=== PATIENT | female | born 1990 | race African-American/Black ===

== ENCOUNTER 2024-12-29 13:54 | Emergency (ER) | payer MEDICAID ==
[~2024-12-29] VITALS: Ht 157.5 cm; Wt 55.0 kg
[2024-12-29 14:05] VITALS: O2SAT 99
[2024-12-29 15:12] LABS: BASOPHILS % 0.6 % (0.0-2.0); DIFFERENTIAL COMMENT 0; EOSINOPHILS % 0.1 % (0.0-5.0); HEMATOCRIT. 39.6 % (36.0-48.0); HEMOGLOBIN. 13.2 g/dL (12.0-16.0); LYMPHOCYTES % 21.2 % (20.0-50.0); MEAN CORPUSCULAR HEMOGLOBIN 33.9 pg (28.0-32.0); MEAN CORPUSCULAR HGB CONC 33.2 g/dL (31.0-37.0); MEAN PLATELET VOLUME 8.2 fl (7.4-10.4); NEUTROPHILS % 73.1 % (40.0-76.0); PLATELET 143 x1000/uL (130-400); RED BLOOD CELL COUNT 3.88 mill/uL (4.2-5.4); RED CELL DISTRIBUTION WIDTH 12.5 % (11.6-14.6); WHITE BLOOD COUNT 6.2 x1000/uL (4.5-11.0)
[2024-12-29 15:13] LABS: CHLORIDE 109 mEq/L (98-107); POTASSIUM 3.2 mEq/L (3.5-5.1); SODIUM 144 mEq/L (136-145)
[2024-12-29 15:14] LABS: CARBON DIOXIDE 23 mEq/L (21-32)
[2024-12-29 15:15] LABS: CALCIUM 10.4 mg/dL (8.7-10.4)
[2024-12-29 15:19] LABS: CREATININE 0.6 mg/dL (0.6-1.0); GLUCOSE 103 mg/dL (70-105)
[2024-12-29 15:20] LABS: UREA NITROGEN BLOOD 11 mg/dL (9-23)
[2024-12-29 15:21] LABS: ALANINE AMINOTRANSFERASE 22 IU/L (10-49); ALBUMIN 4.8 g/dL (3.2-4.8); ASPARTATE AMINOTRANSFERASE 25 IU/L (<34)
[2024-12-29 15:22] LABS: BILIRUBIN DIRECT 0.1 mg/dL (<=3.0); BILIRUBIN TOTAL 0.5 mg/dL (0.1-1.0); PROTEIN TOTAL 8.6 g/dL (6.0-8.3)
[2024-12-29] MEDS: SODIUM CHLORIDE 0.9% 1,000 ML IV ONE (17:03)
[2024-12-29] MEDS: ONDANSETRON HCL 4MG/2ML INJ IV STA (17:03)
[2024-12-29] MEDS: MORPHINE SULFATE 4 MG/ML INJ (FOR IV/IM USE) IV STA (17:03)
[2024-12-29] MEDS: POTASSIUM CHLORIDE 20MEQ/PACKET PO ONE (17:07)
[2024-12-29 18:44] LABS: CLARITY URINE CLEAR (CLEAR); COLOR URINE YELLOW (YELLOW); GLUCOSE URINE NEGATIVE (NEGATIVE); KETONES URINE 1+ (NEGATIVE); LEUKOCYTE ESTERASE URINE NEGATIVE (NEGATIVE); NITRITE URINE NEGATIVE (NEGATIVE); OCCULT BLOOD URINE NEGATIVE (NEGATIVE); PROTEIN URINE TRACE (NEGATIVE); SPECIFIC GRAVITY URINE 1.018 (1.005-1.030); UROBILINOGEN URINE 0.2 E.U./dL (0.2-1.0)
[2024-12-29 19:22] LABS: BACTERIA URINE TRACE; RBC URINE 0-2 /hpf (0-2); SQUAMOUS EPITHELIAL CELL URINE FEW /lpf (RARE/1+); WBC URINE 0-2 /hpf (0-2)
[2024-12-29] MEDS: ONDANSETRON HCL 4MG/2ML INJ IV ONE (21:11)
[2024-12-29] MEDS: MORPHINE SULFATE 4 MG/ML INJ (FOR IV/IM USE) IV ONE (21:12)
[2024-12-29 22:28] VITALS: TEMP 37.2
[2024-12-30 00:10] VITALS: BP 119/68; PULSE 91; RESP 16; O2SAT 100
[2024-12-30] MEDS ORDERED: IBUP-2029 MT (03:39)
== END 2024-12-30 04:02 | disposition home or self-care (01) ==
LOC: ER 13:54
DX: D25.9 Leiomyoma of uterus, unspecified (principal); R10.33 Periumbilical pain; R11.2 Nausea with vomiting, unspecified
CPT/HCPCS: 80076; 80048; 81003; 81025; 83690; 85025; 36415; 74176; 96374; 96375; 96376; 99285; J2405; J2270; J7030; Z7610